=== PATIENT | male | born 1945 | race Native Hawaiian/Other Pacific Islander ===

== ENCOUNTER 2016-04-11 10:15 | Inpatient (IN) | payer OTHER ==
[~2016-04-11 10:15] MED LIST: ALAVERT10 M2 PO; ALLO300T23 PO; ASPIRIN/ENTERIC81 MG PO; CLOPIDOGREL75 MG PO; GLIP10TA55 PO; HYZAAR1 TA1 PO; LIPITOR80 MG PO; MELOXICAM7.5 MG PO; METFTAB PO; METO25TA4 PO; ROBAXIN-750750 MG PO
== END 2016-05-12 08:00 | disposition still patient (30) ==
LOC: PAVC 10:15
PROVIDERS: ADMIT Internal Medicine
DX: Z51.89 Encounter for other specified aftercare (principal)

== ENCOUNTER 2016-05-12 09:00 | Inpatient (IN) | payer OTHER | END 2016-06-12 12:35 | disposition still patient (30) | LOC: PAVC 09:00 | PROVIDERS: ADMIT Internal Medicine | DX: Z51.89 Encounter for other specified aftercare (principal) ==

== ENCOUNTER 2016-06-12 12:55 | Inpatient (IN) | payer OTHER | END 2016-07-10 13:21 | disposition still patient (30) | LOC: PAVC 12:55 | PROVIDERS: ADMIT Internal Medicine | DX: Z51.89 Encounter for other specified aftercare (principal) ==

== ENCOUNTER 2016-07-10 13:38 | Inpatient (IN) | payer OTHER | END 2016-08-10 08:13 | disposition still patient (30) | LOC: PAVC 13:38 | PROVIDERS: ADMIT Internal Medicine | DX: Z51.89 Encounter for other specified aftercare (principal) ==

== ENCOUNTER 2016-07-12 06:22 | Outpatient (CLI) | payer OTHER | END 2016-07-12 19:45 | disposition home or self-care (01) | LOC: LAB 06:22 | DX: E10.9 Type 1 diabetes mellitus without complications (principal) | CPT/HCPCS: 83036 ==

== ENCOUNTER 2016-08-10 08:39 | Inpatient (IN) | payer OTHER | END 2016-09-09 10:57 | disposition still patient (30) | LOC: PAVC 08:39 | PROVIDERS: ADMIT Internal Medicine | DX: Z51.89 Encounter for other specified aftercare (principal) ==

== ENCOUNTER 2016-08-12 16:41 | Outpatient (CLI) | payer OTHER | END 2016-08-12 17:41 | disposition home or self-care (01) | LOC: LAB 16:41 | DX: R31.9 Hematuria, unspecified (principal) | CPT/HCPCS: 81000 ==

== ENCOUNTER 2016-08-14 09:56 | Outpatient (CLI) | payer OTHER | END 2016-08-14 10:56 | disposition home or self-care (01) | LOC: US 09:56 | DX: R31.9 Hematuria, unspecified (principal) ==

== ENCOUNTER 2016-09-02 12:21 | Outpatient (CLI) | payer OTHER | END 2016-09-02 19:28 | disposition home or self-care (01) | LOC: LAB 12:21 | DX: R31.9 Hematuria, unspecified (principal); R50.9 Fever, unspecified | CPT/HCPCS: 81000; 87077; 87086; 87088; 87185; 87186 ==

== ENCOUNTER 2016-09-08 07:49 | Outpatient (CLI) | payer OTHER | END 2016-09-08 19:44 | disposition home or self-care (01) | LOC: LAB 07:49 | DX: Z16.24 Resistance to multiple antibiotics (principal) | CPT/HCPCS: 87081 ==

== ENCOUNTER 2016-09-09 12:01 | Inpatient (IN) | payer OTHER | END 2016-10-10 10:46 | disposition still patient (30) | LOC: PAVC 12:01 | PROVIDERS: ADMIT Internal Medicine | DX: Z51.89 Encounter for other specified aftercare (principal) ==

== ENCOUNTER 2016-09-11 15:04 | Outpatient (CLI) | payer OTHER | END 2016-09-11 19:18 | disposition home or self-care (01) | LOC: CT 15:04 | DX: Z91.81 History of falling (principal) ==

== ENCOUNTER 2016-09-16 05:16 | Outpatient (CLI) | payer OTHER | END 2016-09-16 19:03 | disposition home or self-care (01) | LOC: LAB 05:16 | DX: N39.0 Urinary tract infection, site not specified (principal) | CPT/HCPCS: 81000 ==

== ENCOUNTER 2016-10-05 19:13 | Outpatient (CLI) | payer OTHER | END 2016-10-05 20:30 | disposition home or self-care (01) | LOC: CT 19:13 | DX: H05.232 Hemorrhage of left orbit (principal); G31.89 Other specified degenerative diseases of nervous system ==

== ENCOUNTER 2016-10-10 11:01 | Inpatient (IN) | payer OTHER | END 2016-11-09 16:09 | disposition still patient (30) | LOC: PAVC 11:01 | PROVIDERS: ADMIT Internal Medicine | DX: Z51.89 Encounter for other specified aftercare (principal) ==

== ENCOUNTER 2016-10-15 05:28 | Outpatient (CLI) | payer OTHER ==
[2016-10-15 08:47] LABS: PLATELET COUNT 321 K/uL (142-355)
[2016-10-15 09:10] LABS: POTASSIUM 4.4 mmol/L (3.6-5.2)
== END 2016-10-15 19:07 | disposition home or self-care (01) ==
LOC: LAB 05:28
PROVIDERS: Internal Medicine
DX: D64.89 Other specified anemias (principal); I10 Essential (primary) hypertension; E11.9 Type 2 diabetes mellitus without complications; E03.8 Other specified hypothyroidism
CPT/HCPCS: 80053; 80061; 83036; 84443; 85027

== ENCOUNTER 2016-10-22 05:57 | Outpatient (CLI) | payer OTHER ==
[2016-10-22 06:50] LABS: POTASSIUM 4.2 mmol/L (3.6-5.2)
== END 2016-10-22 07:00 | disposition home or self-care (01) ==
LOC: LAB 05:57
PROVIDERS: Internal Medicine
DX: I10 Essential (primary) hypertension (principal)
CPT/HCPCS: 36415; 80048

== ENCOUNTER 2016-11-09 16:33 | Inpatient (IN) | payer OTHER | END 2016-12-10 12:59 | disposition still patient (30) | LOC: PAVC 16:33 | PROVIDERS: ADMIT Internal Medicine | DX: Z51.89 Encounter for other specified aftercare (principal) ==

== ENCOUNTER 2016-11-18 06:09 | Outpatient (CLI) | payer OTHER | END 2016-11-18 07:10 | disposition home or self-care (01) | LOC: LAB 06:09 | DX: M10.9 Gout, unspecified (principal) | CPT/HCPCS: 36415; 84550 ==

== ENCOUNTER 2016-11-30 14:51 | Outpatient (CLI) | payer OTHER | END 2016-11-30 15:55 | disposition home or self-care (01) | LOC: LAB 14:51 | DX: R30.0 Dysuria (principal) | CPT/HCPCS: 81000; 87077; 87086; 87088; 87185; 87186 ==

== ENCOUNTER 2016-12-10 14:09 | Inpatient (IN) | payer OTHER | END 2017-01-10 09:46 | disposition still patient (30) | LOC: PAVC 14:09 | PROVIDERS: ADMIT Internal Medicine | DX: Z51.89 Encounter for other specified aftercare (principal) ==

== ENCOUNTER 2016-12-20 08:07 | Outpatient (CLI) | payer OTHER | END 2016-12-20 19:59 | disposition home or self-care (01) | LOC: MRI 08:07 | DX: M54.16 Radiculopathy, lumbar region (principal) ==

== ENCOUNTER 2017-01-10 10:30 | Inpatient (IN) | payer OTHER ==
[2017-02-01] MEDS ORDERED: GRALISE600 MG OR (05:04)
[2017-02-01] MEDS ORDERED: LEXAPRO10 MG OR (05:06)
[2017-02-01] MEDS ORDERED: REQUIP1 MG OR (05:07)
[2017-02-01] MEDS ORDERED: CYCL10TA35 PO (05:15)
[2017-02-01] MEDS ORDERED: CETI10TA PO (05:17)
[2017-02-01] MEDS ORDERED: MIRALAX3350 N1 OR (05:19)
[2017-02-01] MEDS ORDERED: OCEAN NAS (05:21)
[2017-02-01] MEDS ORDERED: [UNRECOGNIZED DRUG - OTHER] NAS (05:21)
[2017-02-01] MEDS ORDERED: FLONASE AL50 MCG/ACT (05:23)
[2017-02-01] MEDS ORDERED: TIZA4TAB5 PO (05:26)
[2017-02-01] MEDS ORDERED: HYDR5TAB9 PO (05:29)
== END 2017-02-09 09:37 | disposition still patient (30) ==
LOC: PAVC 10:30
PROVIDERS: ADMIT Internal Medicine
DX: Z51.89 Encounter for other specified aftercare (principal)

== ENCOUNTER 2017-01-16 03:03 | Outpatient (CLI) | payer OTHER | END 2017-01-16 04:05 | disposition home or self-care (01) | LOC: LAB 03:03 | DX: E11.9 Type 2 diabetes mellitus without complications (principal); M10.9 Gout, unspecified | CPT/HCPCS: 83036; 84550 ==

== ENCOUNTER 2017-01-31 18:39 | Inpatient (IN) | payer OTHER ==
[~2017-01-31] VITALS: Ht 162.6 cm; Wt 87.8 kg
[2017-01-31 18:55] VITALS: BP 145/73; TEMP 98
[2017-01-31 19:34] LABS: PLATELET COUNT 254 K/uL (142-355)
[2017-01-31 20:09] LABS: POTASSIUM 4.6 mmol/L (3.6-5.2)
[2017-01-31 22:00] VITALS: BP 147/77; TEMP 99.1
[2017-01-31 23:00] VITALS: BP 162/85
[2017-01-31 23:49] VITALS: BP 147/77; TEMP 99.1; Ht 162.6 cm; Wt 87.8 kg
[2017-02-01] VITALS (17 sets, daily range): BP systolic 122–176; BP diastolic 75–103; TEMP 98.2–98.8
[2017-02-01] MEDS ORDERED: GRALISE600 MG OR (05:04)
[2017-02-01] MEDS ORDERED: LEXAPRO10 MG OR (05:06)
[2017-02-01] MEDS ORDERED: REQUIP1 MG OR (05:07)
[2017-02-01] MEDS ORDERED: CYCL10TA35 PO (05:15)
[2017-02-01] MEDS ORDERED: CETI10TA PO (05:17)
[2017-02-01] MEDS ORDERED: MIRALAX3350 N1 OR (05:19)
[2017-02-01] MEDS ORDERED: [UNRECOGNIZED DRUG - OTHER] NAS (05:21)
[2017-02-01] MEDS ORDERED: OCEAN NAS (05:21)
[2017-02-01] MEDS ORDERED: FLONASE AL50 MCG/ACT (05:23)
[2017-02-01] MEDS ORDERED: TIZA4TAB5 PO (05:26)
[2017-02-01] MEDS ORDERED: HYDR5TAB9 PO (05:29)
[2017-02-01 08:10] LABS: PLATELET COUNT 263 K/uL (142-355)
[2017-02-02 01:00] VITALS: BP 152/81
[2017-02-02 02:00] VITALS: BP 127/87
[2017-02-02 03:00] VITALS: BP 130/81
[2017-02-02 04:00] VITALS: BP 124/81; TEMP 98
[2017-02-02 05:00] VITALS: BP 152/88
[2017-02-02 06:00] VITALS: BP 131/68
== END 2017-02-02 13:15 | DRG 69 ==
LOC: ED 18:39 → ICU 21:08
PROVIDERS: Internal Medicine; ADMIT Family Medicine
DX: G45.8 Other transient cerebral ischemic attacks and related syndromes (principal); R47.89 Other speech disturbances; I25.10 Atherosclerotic heart disease of native coronary artery without angina pectoris; E11.9 Type 2 diabetes mellitus without complications; I10 Essential (primary) hypertension; R26.81 Unsteadiness on feet; F80.1 Expressive language disorder
CPT/HCPCS: 36415; 80053; 80061; 81000; 82962; 85027; 85379; 93005; 96360; 99284; J1650; J2543; J7060

== ENCOUNTER 2017-02-03 14:30 | Outpatient (CLI) | payer OTHER ==
[~2017-02-03 14:30] MED LIST changes: +CETI10TA PO; +CYCL10TA35 PO; +FLONASE AL50 MCG/ACT; +GRALISE600 MG OR; +HYDR5TAB9 PO; +LEXAPRO10 MG OR; +MIRALAX3350 N1 OR; +OCEAN NAS; +REQUIP1 MG OR; +TIZA4TAB5 PO; +[UNRECOGNIZED DRUG - OTHER] NAS
== END 2017-02-03 19:07 | disposition home or self-care (01) ==
LOC: MRI 14:30
DX: R47.89 Other speech disturbances (principal)

== ENCOUNTER 2017-02-04 14:58 | Outpatient (CLI) | payer OTHER | END 2017-02-04 19:14 | disposition home or self-care (01) | LOC: MRI 14:58 | DX: R47.81 Slurred speech (principal); M47.892 Other spondylosis, cervical region | CPT/HCPCS: 93306 ==

== ENCOUNTER 2017-02-09 09:58 | Inpatient (IN) | payer OTHER | END 2017-03-12 14:20 | disposition still patient (30) | LOC: PAVC 09:58 | PROVIDERS: ADMIT Internal Medicine ==

== ENCOUNTER 2017-02-18 08:26 | Outpatient (CLI) | payer OTHER | END 2017-02-18 19:02 | disposition home or self-care (01) | LOC: NM 08:26 | DX: R07.89 Other chest pain (principal); I25.89 Other forms of chronic ischemic heart disease | CPT/HCPCS: A9500; J2785 ==

== ENCOUNTER 2017-02-21 14:09 | Outpatient (CLI) | payer OTHER | END 2017-02-21 15:10 | disposition home or self-care (01) | LOC: LAB 14:09 | DX: R31.9 Hematuria, unspecified (principal) | CPT/HCPCS: 81000 ==

== ENCOUNTER 2017-03-12 15:04 | Inpatient (IN) | payer OTHER | END 2017-04-11 10:30 | disposition still patient (30) | LOC: PAVC 15:04 | PROVIDERS: ADMIT Internal Medicine ==

== ENCOUNTER 2017-03-24 14:55 | Outpatient (CLI) | payer OTHER | END 2017-03-24 15:55 | disposition home or self-care (01) | LOC: LAB 14:55 | DX: R30.0 Dysuria (principal); R30.9 Painful micturition, unspecified | CPT/HCPCS: 81000; 87077; 87086; 87088; 87186 ==

== ENCOUNTER 2017-04-11 10:55 | Inpatient (IN) | payer OTHER | END 2017-05-12 10:57 | disposition still patient (30) | LOC: PAVC 10:55 | PROVIDERS: ADMIT Internal Medicine ==

== ENCOUNTER 2017-04-17 04:25 | Outpatient (CLI) | payer OTHER ==
[2017-04-17 05:10] LABS: PLATELET COUNT 257 K/uL (142-355)
[2017-04-17 05:43] LABS: POTASSIUM 4.3 mmol/L (3.6-5.2)
== END 2017-04-17 19:06 | disposition home or self-care (01) ==
LOC: LAB 04:25
PROVIDERS: Internal Medicine
DX: R73.09 Other abnormal glucose (principal); R79.89 Other specified abnormal findings of blood chemistry; Z13.29 Encounter for screening for other suspected endocrine disorder; Z79.899 Other long term (current) drug therapy
CPT/HCPCS: 80053; 83036; 84443; 85027

== ENCOUNTER 2017-04-19 02:38 | Observation (INO) | payer OTHER ==
[~2017-04-19] VITALS: Ht 162.6 cm; Wt 86.4 kg
[2017-04-19 02:41] VITALS: BP 138/81; TEMP 99.3
[2017-04-19 03:15] LABS: PLATELET COUNT 247 K/uL (142-355)
[2017-04-19 08:00] VITALS: BP 145/90; TEMP 98.7
[2017-04-19 08:29] VITALS: BP 145/90; TEMP 98.7; Ht 162.6 cm; Wt 86.4 kg
[2017-04-19 12:00] VITALS: BP 143/74; TEMP 98.3
== END 2017-04-19 14:06 ==
LOC: ED 02:38 → MED/SURG 05:20
PROVIDERS: Specialist; ADMIT Internal Medicine
DX: K92.0 Hematemesis (principal); I25.10 Atherosclerotic heart disease of native coronary artery without angina pectoris; E11.9 Type 2 diabetes mellitus without complications; I10 Essential (primary) hypertension; R26.81 Unsteadiness on feet; Z91.81 History of falling; R73.09 Other abnormal glucose; Z13.29 Encounter for screening for other suspected endocrine disorder; Z79.899 Other long term (current) drug therapy
CPT/HCPCS: 36415; 80053; 83036; 83605; 83735; 84443; 84484; 85014; 85018; 85027; 86850; 86900; 86901; 96374; 99220; 99284; G0378; J3490

== ENCOUNTER 2017-05-12 11:45 | Inpatient (IN) | payer OTHER | END 2017-06-12 11:13 | disposition still patient (30) | LOC: PAVC 11:45 | PROVIDERS: ADMIT Internal Medicine ==

== ENCOUNTER 2017-05-14 04:16 | Outpatient (CLI) | payer OTHER | END 2017-05-14 21:33 | disposition home or self-care (01) | LOC: LAB 04:16 | DX: M10.9 Gout, unspecified (principal) | CPT/HCPCS: 36415; 84550 ==

== ENCOUNTER 2017-05-26 13:16 | Outpatient (CLI) | payer OTHER | END 2017-05-26 22:02 | disposition home or self-care (01) | LOC: RAD 13:16 | DX: R05 Cough (principal); R09.89 Other specified symptoms and signs involving the circulatory and respiratory systems | CPT/HCPCS: 87804 ==

== ENCOUNTER 2017-06-12 12:29 | Inpatient (IN) | payer OTHER | END 2017-07-10 10:38 | disposition still patient (30) | LOC: PAVC 12:29 | PROVIDERS: ADMIT Internal Medicine ==

== ENCOUNTER 2017-06-23 05:28 | Outpatient (CLI) | payer OTHER ==
[2017-06-23 05:51] LABS: POTASSIUM 3.7 mmol/L (3.6-5.2)
== END 2017-06-23 19:15 | disposition home or self-care (01) ==
LOC: LAB 05:28
PROVIDERS: Internal Medicine
DX: M62.81 Muscle weakness (generalized) (principal); E10.9 Type 1 diabetes mellitus without complications
CPT/HCPCS: 36415; 80048

== ENCOUNTER 2017-07-10 10:57 | Inpatient (IN) | payer OTHER | END 2017-08-10 08:00 | disposition still patient (30) | LOC: PAVC 10:57 | PROVIDERS: ADMIT Internal Medicine ==

== ENCOUNTER 2017-07-18 05:26 | Outpatient (CLI) | payer OTHER | END 2017-07-18 21:16 | disposition home or self-care (01) | LOC: LAB 05:26 | DX: E03.8 Other specified hypothyroidism (principal); E11.9 Type 2 diabetes mellitus without complications | CPT/HCPCS: 83036 ==

== ENCOUNTER 2017-08-10 09:00 | Inpatient (IN) | payer OTHER | END 2017-09-09 10:28 | disposition still patient (30) | LOC: PAVC 09:00 | PROVIDERS: ADMIT Internal Medicine ==

== ENCOUNTER 2017-08-25 14:46 | Outpatient (CLI) | payer OTHER | END 2017-08-25 20:08 | disposition home or self-care (01) | LOC: CT 14:46 | DX: R31.9 Hematuria, unspecified (principal); Z87.442 Personal history of urinary calculi ==

== ENCOUNTER 2017-09-09 10:52 | Inpatient (IN) | payer OTHER | END 2017-10-10 10:24 | disposition still patient (30) | LOC: PAVC 10:52 | PROVIDERS: ADMIT Internal Medicine ==

== ENCOUNTER 2017-10-10 10:48 | Inpatient (IN) | payer OTHER | END 2017-11-09 15:05 | disposition still patient (30) | LOC: PAVC 10:48 | PROVIDERS: ADMIT Internal Medicine ==

== ENCOUNTER 2017-10-17 03:52 | Outpatient (CLI) | payer OTHER ==
[2017-10-17 05:26] LABS: PLATELET COUNT 236 K/uL (142-355)
[2017-10-17 05:49] LABS: POTASSIUM 3.9 mmol/L (3.6-5.2)
== END 2017-10-17 19:08 | disposition home or self-care (01) ==
LOC: LAB 03:52
PROVIDERS: Internal Medicine
DX: I10 Essential (primary) hypertension (principal); K21.9 Gastro-esophageal reflux disease without esophagitis; R73.9 Hyperglycemia, unspecified; M62.81 Muscle weakness (generalized)
CPT/HCPCS: 80053; 80061; 83036; 84443; 85027

== ENCOUNTER 2017-10-28 11:16 | Outpatient (CLI) | payer OTHER | END 2017-10-28 22:18 | disposition home or self-care (01) | LOC: RAD 11:16 | DX: R05 Cough (principal) ==

== ENCOUNTER 2017-11-09 15:31 | Inpatient (IN) | payer OTHER | END 2017-12-10 08:00 | disposition still patient (30) | LOC: PAVC 15:31 | PROVIDERS: ADMIT Internal Medicine ==

== ENCOUNTER 2017-11-10 05:08 | Outpatient (CLI) | payer OTHER | END 2017-11-10 19:39 | disposition home or self-care (01) | LOC: LAB 05:08 | DX: M10.9 Gout, unspecified (principal) | CPT/HCPCS: 36415; 84550 ==

== ENCOUNTER 2017-12-10 09:00 | Inpatient (IN) | payer OTHER | END 2018-01-10 11:11 | disposition still patient (30) | LOC: PAVC 09:00 | PROVIDERS: ADMIT Internal Medicine ==

== ENCOUNTER 2018-01-10 11:35 | Inpatient (IN) | payer OTHER | END 2018-02-09 14:36 | disposition still patient (30) | LOC: PAVC 11:35 | PROVIDERS: ADMIT Internal Medicine ==

== ENCOUNTER 2018-01-13 04:26 | Outpatient (CLI) | payer OTHER | END 2018-01-13 23:26 | disposition home or self-care (01) | LOC: LAB 04:26 | DX: E03.9 Hypothyroidism, unspecified (principal); R73.9 Hyperglycemia, unspecified | CPT/HCPCS: 36415; 83036 ==

== ENCOUNTER 2018-02-09 15:35 | Inpatient (IN) | payer OTHER | END 2018-03-12 10:33 | disposition still patient (30) | LOC: PAVC 15:35 | PROVIDERS: ADMIT Internal Medicine ==

== ENCOUNTER 2018-03-12 11:29 | Inpatient (IN) | payer OTHER | END 2018-04-11 07:21 | disposition still patient (30) | LOC: PAVC 11:29 | PROVIDERS: ADMIT Internal Medicine ==

== ENCOUNTER 2018-03-19 05:39 | Outpatient (CLI) | payer OTHER | END 2018-03-19 20:08 | disposition home or self-care (01) | LOC: LAB 05:39 | DX: E55.9 Vitamin D deficiency, unspecified (principal) | CPT/HCPCS: 36415; 82306 ==

== ENCOUNTER 2018-04-08 23:17 | Outpatient (CLI) | payer OTHER | END 2018-04-09 00:17 | disposition home or self-care (01) | LOC: LAB 23:17 | DX: R82.90 Unspecified abnormal findings in urine (principal) | CPT/HCPCS: 81000; 87088 ==

== ENCOUNTER 2018-04-11 07:47 | Inpatient (IN) | payer OTHER | END 2018-05-12 09:36 | disposition still patient (30) | LOC: PAVC 07:47 | PROVIDERS: ADMIT Internal Medicine ==

== ENCOUNTER 2018-04-15 05:25 | Outpatient (CLI) | payer OTHER ==
[2018-04-15 06:26] LABS: PLATELET COUNT 384 K/uL (142-355)
[2018-04-15 06:47] LABS: POTASSIUM 4.3 mmol/L (3.6-5.2)
== END 2018-04-15 21:11 | disposition home or self-care (01) ==
LOC: LAB 05:25
PROVIDERS: Internal Medicine
DX: I10 Essential (primary) hypertension (principal); R73.09 Other abnormal glucose; M62.81 Muscle weakness (generalized)
CPT/HCPCS: 80053; 83036; 84443; 85027

== ENCOUNTER 2018-05-12 09:53 | Inpatient (IN) | payer OTHER | END 2018-06-12 09:37 | disposition still patient (30) | LOC: PAVC 09:53 | PROVIDERS: ADMIT Internal Medicine | CPT/HCPCS: 87088 ==

== ENCOUNTER 2018-05-16 19:35 | Outpatient (CLI) | payer OTHER | END 2018-05-16 23:01 | disposition home or self-care (01) | LOC: LAB 19:35 | DX: R30.0 Dysuria (principal) | CPT/HCPCS: 81000; 87077; 87086; 87088; 87185; 87186 ==

== ENCOUNTER 2018-05-18 05:07 | Outpatient (CLI) | payer OTHER | END 2018-05-18 20:15 | disposition home or self-care (01) | LOC: LAB 05:07 | DX: M10.9 Gout, unspecified (principal) | CPT/HCPCS: 84550 ==

== ENCOUNTER 2018-06-12 10:20 | Inpatient (IN) | payer OTHER | END 2018-07-10 13:47 | disposition still patient (30) | LOC: PAVC 10:20 | PROVIDERS: ADMIT Internal Medicine ==

== ENCOUNTER 2018-06-15 08:33 | Outpatient (CLI) | payer OTHER | END 2018-06-15 20:47 | disposition home or self-care (01) | LOC: LAB 08:33 | DX: E83.51 Hypocalcemia (principal) | CPT/HCPCS: 36415; 82306; 82310 ==

== ENCOUNTER 2018-07-10 14:13 | Inpatient (IN) | payer OTHER | END 2018-08-10 12:31 | disposition still patient (30) | LOC: PAVC 14:13 | PROVIDERS: ADMIT Internal Medicine ==

== ENCOUNTER 2018-07-16 11:31 | Outpatient (CLI) | payer OTHER | END 2018-07-16 19:56 | disposition home or self-care (01) | LOC: LAB 11:31 | DX: E11.65 Type 2 diabetes mellitus with hyperglycemia (principal) | CPT/HCPCS: 83036 ==

== ENCOUNTER 2018-08-10 12:50 | Inpatient (IN) | payer OTHER | END 2018-09-09 13:43 | disposition still patient (30) | LOC: PAVC 12:50 | PROVIDERS: ADMIT Internal Medicine ==

== ENCOUNTER 2018-09-09 14:12 | Inpatient (IN) | payer OTHER | END 2018-10-10 09:40 | disposition still patient (30) | LOC: PAVC 14:12 | PROVIDERS: ADMIT Internal Medicine | DX: Z51.89 Encounter for other specified aftercare (principal) ==

== ENCOUNTER 2018-10-10 10:05 | Inpatient (IN) | payer OTHER | END 2018-11-09 12:19 | disposition still patient (30) | LOC: PAVC 10:05 | PROVIDERS: ADMIT Internal Medicine ==

== ENCOUNTER 2018-10-20 03:31 | Outpatient (CLI) | payer OTHER ==
[2018-10-20 03:56] LABS: PLATELET COUNT 237 K/uL (142-355)
[2018-10-20 04:35] LABS: POTASSIUM 4.1 mmol/L (3.6-5.2)
== END 2018-10-20 22:59 | disposition home or self-care (01) ==
LOC: LAB 03:31
PROVIDERS: Internal Medicine
DX: R73.09 Other abnormal glucose (principal); R68.89 Other general symptoms and signs; R94.6 Abnormal results of thyroid function studies; Z13.220 Encounter for screening for lipoid disorders; Z12.5 Encounter for screening for malignant neoplasm of prostate; I10 Essential (primary) hypertension
CPT/HCPCS: 36415; 80053; 80061; 83036; 84153; 84443; 85027

== ENCOUNTER 2018-11-09 12:31 | Inpatient (IN) | payer OTHER | END 2018-12-10 11:54 | disposition still patient (30) | LOC: PAVC 12:31 | PROVIDERS: ADMIT Internal Medicine ==

== ENCOUNTER 2018-11-13 04:51 | Outpatient (CLI) | payer OTHER | END 2018-11-13 20:39 | disposition home or self-care (01) | LOC: LAB 04:51 | DX: M10.9 Gout, unspecified (principal); E11.9 Type 2 diabetes mellitus without complications | CPT/HCPCS: 84550 ==

== ENCOUNTER 2018-12-10 14:15 | Inpatient (IN) | payer OTHER | END 2019-01-10 17:17 | disposition still patient (30) | LOC: PAVC 14:15 | PROVIDERS: ADMIT Internal Medicine ==

== ENCOUNTER 2019-01-10 17:41 | Inpatient (IN) | payer OTHER | END 2019-02-09 12:57 | disposition still patient (30) | LOC: PAVC 17:41 | PROVIDERS: ADMIT Internal Medicine ==

== ENCOUNTER 2019-01-12 09:30 | Outpatient (CLI) | payer OTHER | END 2019-01-12 22:51 | disposition home or self-care (01) | LOC: LAB 09:30 | DX: I10 Essential (primary) hypertension (principal); R94.6 Abnormal results of thyroid function studies; E11.9 Type 2 diabetes mellitus without complications | CPT/HCPCS: 83036; 84443 ==

== ENCOUNTER 2019-02-09 13:30 | Inpatient (IN) | payer OTHER | END 2019-03-12 14:10 | disposition still patient (30) | LOC: PAVC 13:30 | PROVIDERS: ADMIT Internal Medicine ==

== ENCOUNTER 2019-03-12 14:36 | Inpatient (IN) | payer OTHER | END 2019-04-11 08:00 | disposition still patient (30) | LOC: PAVC 14:36 | PROVIDERS: ADMIT Internal Medicine ==

== ENCOUNTER 2019-04-11 11:00 | Inpatient (IN) | payer OTHER | END 2019-05-12 09:30 | disposition still patient (30) | LOC: PAVC 11:00 | PROVIDERS: ADMIT Internal Medicine ==

== ENCOUNTER 2019-04-12 07:44 | Outpatient (CLI) | payer OTHER ==
[2019-04-12 08:18] LABS: PLATELET COUNT 252 K/uL (142-355)
[2019-04-12 08:56] LABS: POTASSIUM 4.1 mmol/L (3.6-5.2)
== END 2019-04-12 20:54 | disposition home or self-care (01) ==
LOC: LAB 07:44
PROVIDERS: Internal Medicine
DX: E11.9 Type 2 diabetes mellitus without complications (principal); E03.8 Other specified hypothyroidism; I10 Essential (primary) hypertension
CPT/HCPCS: 80053; 83036; 84443; 85027

== ENCOUNTER 2019-05-12 09:56 | Inpatient (IN) | payer OTHER | END 2019-06-12 10:45 | disposition still patient (30) | LOC: PAVC 09:56 | PROVIDERS: ADMIT Internal Medicine ==

== ENCOUNTER 2019-05-14 05:31 | Outpatient (CLI) | payer OTHER | END 2019-05-14 19:24 | disposition home or self-care (01) | LOC: LAB 05:31 | DX: M10.9 Gout, unspecified (principal) | CPT/HCPCS: 84550 ==

== ENCOUNTER 2019-05-27 05:13 | Outpatient (CLI) | payer OTHER | END 2019-05-27 20:17 | disposition home or self-care (01) | LOC: LAB 05:13 | PROVIDERS: Internal Medicine | DX: I25.9 Chronic ischemic heart disease, unspecified (principal) | CPT/HCPCS: 80048; 83880 ==

== ENCOUNTER 2019-06-12 11:11 | Inpatient (IN) | payer OTHER | END 2019-07-11 14:11 | disposition still patient (30) | LOC: PAVC 11:11 | PROVIDERS: ADMIT Internal Medicine ==

== ENCOUNTER 2019-07-11 14:37 | Inpatient (IN) | payer OTHER | END 2019-08-11 11:43 | disposition still patient (30) | LOC: PAVC 14:37 | PROVIDERS: ADMIT Internal Medicine ==

== ENCOUNTER 2019-07-12 05:51 | Outpatient (CLI) | payer OTHER | END 2019-07-12 19:06 | disposition home or self-care (01) | LOC: LAB 05:51 | DX: E11.9 Type 2 diabetes mellitus without complications (principal) | CPT/HCPCS: 83036 ==

== ENCOUNTER 2019-08-11 12:09 | Inpatient (IN) | payer OTHER | END 2019-09-10 11:22 | disposition still patient (30) | LOC: PAVC 12:09 | PROVIDERS: ADMIT Internal Medicine ==

== ENCOUNTER 2019-09-02 09:08 | Emergency (ER) | payer OTHER ==
[~2019-09-02] VITALS: Ht 175.3 cm; Wt 72.6 kg
[2019-09-02 09:08] VITALS: TEMP 97.2
[2019-09-02 09:52] LABS: PLATELET COUNT 356 K/uL (142-355)
[2019-09-02 09:54] LABS: POTASSIUM 4.7 mmol/L (3.6-5.2); SODIUM 129 mmol/L (136-145)
[2019-09-02 10:10] LABS: PARTIAL THROMBOPLASTIN TIME 36.3 SECONDS (24.5-33.6)
[2019-09-02 11:50] VITALS: BP 102/56
== END 2019-09-02 11:50 ==
LOC: ED 09:18
PROVIDERS: Hospitalist
DX: E11.649 Type 2 diabetes mellitus with hypoglycemia without coma (principal); Z79.84 Long term (current) use of oral hypoglycemic drugs; Z51.81 Encounter for therapeutic drug level monitoring; E86.0 Dehydration; U07.1 COVID-19; I44.4 Left anterior fascicular block; R06.89 Other abnormalities of breathing
CPT/HCPCS: 36415; 80053; 82550; 82962; 83880; 84484; 85027; 85610; 85730; 93005; 96360; 96361; 96375; 96376; 99284; J7060

== ENCOUNTER 2019-09-10 11:54 | Inpatient (IN) | payer OTHER | END 2019-10-11 11:21 | disposition still patient (30) | LOC: PAVC 11:54 | PROVIDERS: ADMIT Internal Medicine | CPT/HCPCS: 87635; U0002 ==

== ENCOUNTER 2019-10-11 11:47 | Inpatient (IN) | payer OTHER | END 2019-11-10 11:55 | disposition still patient (30) | LOC: PAVC 11:47 | PROVIDERS: ADMIT Internal Medicine | CPT/HCPCS: 87635; U0002 ==

== ENCOUNTER 2019-10-12 04:06 | Outpatient (CLI) | payer OTHER ==
[2019-10-12 06:20] LABS: PLATELET COUNT 380 K/uL (142-355)
[2019-10-12 06:21] LABS: POTASSIUM 4.1 mmol/L (3.6-5.2)
== END 2019-10-12 19:05 | disposition home or self-care (01) ==
LOC: LAB 04:06
PROVIDERS: Internal Medicine
DX: E11.9 Type 2 diabetes mellitus without complications (principal); I25.10 Atherosclerotic heart disease of native coronary artery without angina pectoris
CPT/HCPCS: 80053; 80061; 83036; 85027

== ENCOUNTER 2019-10-22 03:09 | Outpatient (CLI) | payer OTHER | END 2019-10-22 18:54 | disposition home or self-care (01) | LOC: LAB 03:09 | DX: E03.8 Other specified hypothyroidism (principal) | CPT/HCPCS: 84443 ==

== ENCOUNTER 2019-11-10 12:09 | Inpatient (IN) | payer OTHER | END 2019-12-11 10:13 | disposition still patient (30) | LOC: PAVC 12:09 | PROVIDERS: ADMIT Internal Medicine ==

== ENCOUNTER 2019-12-11 10:28 | Inpatient (IN) | payer OTHER | END 2020-01-11 14:01 | disposition still patient (30) | LOC: PAVC 10:28 | PROVIDERS: ADMIT Internal Medicine ==

== ENCOUNTER 2020-01-11 14:39 | Inpatient (IN) | payer OTHER | END 2020-02-10 14:08 | disposition still patient (30) | LOC: PAVC 14:39 | PROVIDERS: ADMIT Internal Medicine ==

== ENCOUNTER 2020-01-12 07:01 | Outpatient (CLI) | payer OTHER | END 2020-01-12 23:53 | disposition home or self-care (01) | LOC: LAB 07:01 | DX: E11.9 Type 2 diabetes mellitus without complications (principal) | CPT/HCPCS: 83036; 84153 ==

== ENCOUNTER 2020-02-10 15:02 | Inpatient (IN) | payer OTHER | END 2020-03-12 08:00 | disposition still patient (30) | LOC: PAVC 15:02 | PROVIDERS: ADMIT Internal Medicine ==

== ENCOUNTER 2020-03-11 08:00 | Outpatient (CLI) | payer OTHER | END 2020-03-11 17:00 | LOC: CCM 08:00 | PROVIDERS: ATTEND Nurse Practitioner Family | DX: I10 Essential (primary) hypertension (principal); E11.9 Type 2 diabetes mellitus without complications | CPT/HCPCS: 99453; 99454 ==

== ENCOUNTER 2020-03-12 09:00 | Inpatient (IN) | payer OTHER | END 2020-04-11 12:24 | disposition still patient (30) | LOC: PAVC 09:00 | PROVIDERS: ADMIT Internal Medicine; ATTEND Internal Medicine ==

== ENCOUNTER 2020-04-11 07:17 | Outpatient (CLI) | payer OTHER ==
[2020-04-11 08:14] LABS: PLATELET COUNT 262 K/uL (142-355)
[2020-04-11 08:29] LABS: POTASSIUM 4.2 mmol/L (3.6-5.2)
== END 2020-04-11 22:21 | disposition home or self-care (01) ==
LOC: LAB 07:17
PROVIDERS: ATTEND Internal Medicine
DX: I25.9 Chronic ischemic heart disease, unspecified (principal); E11.9 Type 2 diabetes mellitus without complications; I25.10 Atherosclerotic heart disease of native coronary artery without angina pectoris
CPT/HCPCS: 80053; 83036; 84443; 85007; 85027

== ENCOUNTER 2020-04-11 12:40 | Inpatient (IN) | payer OTHER | END 2020-05-12 09:47 | disposition still patient (30) | LOC: PAVC 12:40 | PROVIDERS: ADMIT Internal Medicine; ATTEND Internal Medicine ==

== ENCOUNTER 2020-05-12 10:00 | Inpatient (IN) | payer OTHER | END 2020-06-12 15:30 | disposition still patient (30) | LOC: PAVC 10:00 | PROVIDERS: ADMIT Internal Medicine; ATTEND Internal Medicine ==

== ENCOUNTER 2020-06-12 15:46 | Inpatient (IN) | payer OTHER | END 2020-07-10 11:15 | disposition still patient (30) | LOC: PAVC 15:46 | PROVIDERS: ADMIT Internal Medicine; ATTEND Internal Medicine ==

== ENCOUNTER 2020-07-10 11:38 | Inpatient (IN) | payer OTHER | END 2020-08-10 11:45 | disposition still patient (30) | LOC: PAVC 11:38 | PROVIDERS: ADMIT Internal Medicine; ATTEND Internal Medicine ==

== ENCOUNTER 2020-07-26 11:12 | Outpatient (CLI) | payer OTHER | END 2020-07-26 22:13 | disposition home or self-care (01) | LOC: INF 11:12 | PROVIDERS: ATTEND Internal Medicine | DX: Z23 Encounter for immunization (principal) | CPT/HCPCS: 96372 ==

== ENCOUNTER 2020-08-10 12:12 | Inpatient (IN) | payer OTHER | END 2020-09-09 11:25 | disposition still patient (30) | LOC: PAVC 12:12 | PROVIDERS: ADMIT Internal Medicine; ATTEND Internal Medicine ==

== ENCOUNTER 2020-08-24 14:44 | Outpatient (CLI) | payer OTHER | END 2020-08-24 22:02 | disposition home or self-care (01) | LOC: INF 14:44 | PROVIDERS: ATTEND Internal Medicine | DX: Z23 Encounter for immunization (principal) | CPT/HCPCS: 96372 ==

== ENCOUNTER 2020-09-05 16:58 | Emergency (ER) | payer OTHER ==
[~2020-09-05] VITALS: Ht 175.3 cm; Wt 72.6 kg
[2020-09-05 16:58] VITALS: TEMP 97.2
[2020-09-05 17:33] LABS: PLATELET COUNT 306 K/uL (142-355)
[2020-09-05 17:42] LABS: PARTIAL THROMBOPLASTIN TIME 29.2 SECONDS (24.5-33.6)
[2020-09-05 18:46] VITALS: BP 145/70
== END 2020-09-05 19:00 ==
LOC: ED 16:58
PROVIDERS: Family Medicine
DX: R53.83 Other fatigue (principal); Z79.899 Other long term (current) drug therapy; Z51.81 Encounter for therapeutic drug level monitoring
CPT/HCPCS: 80053; 85027; 85610; 85730; 93005; 99283

== ENCOUNTER 2020-09-09 11:39 | Inpatient (IN) | payer OTHER | END 2020-10-10 15:44 | disposition still patient (30) | LOC: PAVC 11:39 | PROVIDERS: ADMIT Internal Medicine; ATTEND Internal Medicine ==

== ENCOUNTER 2020-09-13 06:16 | Outpatient (CLI) | payer OTHER | END 2020-09-13 19:14 | disposition home or self-care (01) | LOC: LAB 06:16 | PROVIDERS: ATTEND Internal Medicine | DX: N39.0 Urinary tract infection, site not specified (principal) | CPT/HCPCS: 81000; 87077; 87086; 87088; 87186 ==

== ENCOUNTER 2020-10-10 07:50 | Outpatient (CLI) | payer OTHER ==
[2020-10-10 09:55] LABS: PLATELET COUNT 192 K/uL (142-355)
[2020-10-10 10:23] LABS: POTASSIUM 4.4 mmol/L (3.6-5.2)
== END 2020-10-10 19:09 | disposition home or self-care (01) ==
LOC: LAB 07:50
PROVIDERS: ATTEND Internal Medicine
DX: I25.10 Atherosclerotic heart disease of native coronary artery without angina pectoris (principal); E11.9 Type 2 diabetes mellitus without complications
CPT/HCPCS: 80053; 80061; 83036; 84443; 85007; 85027

== ENCOUNTER 2020-10-10 16:47 | Inpatient (IN) | payer OTHER | END 2020-11-09 09:00 | disposition still patient (30) | LOC: PAVC 16:47 | PROVIDERS: ADMIT Internal Medicine; ATTEND Internal Medicine ==

== ENCOUNTER 2020-11-09 09:00 | Inpatient (IN) | payer OTHER | END 2020-12-10 08:00 | disposition still patient (30) | LOC: PAVC 09:00 | PROVIDERS: ADMIT Internal Medicine; ATTEND Internal Medicine ==

== ENCOUNTER 2020-11-29 00:33 | Outpatient (CLI) | payer OTHER | END 2020-11-29 19:18 | disposition home or self-care (01) | LOC: LAB 00:33 | PROVIDERS: ATTEND Internal Medicine | DX: R30.0 Dysuria (principal) | CPT/HCPCS: 81000 ==

== ENCOUNTER 2020-12-10 09:00 | Inpatient (IN) | payer OTHER | END 2021-01-10 13:50 | disposition still patient (30) | LOC: PAVC 09:00 | PROVIDERS: ADMIT Internal Medicine; ATTEND Internal Medicine ==

== ENCOUNTER 2021-01-10 04:27 | Outpatient (CLI) | payer OTHER | END 2021-01-10 23:00 | disposition home or self-care (01) | LOC: LAB 04:27 | PROVIDERS: ATTEND Internal Medicine | DX: E11.9 Type 2 diabetes mellitus without complications (principal); N40.0 Benign prostatic hyperplasia without lower urinary tract symptoms | CPT/HCPCS: 83036; 84153 ==

== ENCOUNTER 2021-01-10 14:02 | Inpatient (IN) | payer OTHER | END 2021-02-09 09:38 | disposition still patient (30) | LOC: PAVC 14:02 | PROVIDERS: ADMIT Internal Medicine; ATTEND Internal Medicine ==

== ENCOUNTER 2021-04-11 08:18 | Outpatient (CLI) | payer OTHER ==
[2021-04-11 08:46] LABS: PLATELET COUNT 172 K/uL (142-355)
[2021-04-11 09:09] LABS: POTASSIUM 4.5 mmol/L (3.6-5.2)
== END 2021-04-11 20:12 | disposition home or self-care (01) ==
LOC: LAB 08:18
PROVIDERS: ATTEND Internal Medicine
DX: E11.9 Type 2 diabetes mellitus without complications (principal); E03.8 Other specified hypothyroidism; I25.10 Atherosclerotic heart disease of native coronary artery without angina pectoris; I10 Essential (primary) hypertension
CPT/HCPCS: 80053; 83036; 84443; 85027

== ENCOUNTER 2021-04-11 12:34 | Inpatient (IN) | payer OTHER | END 2021-05-12 09:08 | disposition still patient (30) | LOC: PAVC 12:34 | PROVIDERS: ADMIT Internal Medicine; ATTEND Internal Medicine ==

== ENCOUNTER 2021-05-12 09:26 | Inpatient (IN) | payer OTHER | END 2021-06-12 08:57 | disposition still patient (30) | LOC: PAVC 09:26 | PROVIDERS: ADMIT Internal Medicine; ATTEND Internal Medicine ==

== ENCOUNTER 2021-06-12 13:02 | Inpatient (IN) | payer OTHER | END 2021-07-10 09:08 | disposition still patient (30) | LOC: PAVC 13:02 | PROVIDERS: ADMIT Internal Medicine; ATTEND Internal Medicine ==

== ENCOUNTER 2021-07-10 07:12 | Outpatient (CLI) | payer OTHER | END 2021-07-10 19:00 | disposition home or self-care (01) | LOC: LAB 07:12 | PROVIDERS: ATTEND Internal Medicine | DX: E11.9 Type 2 diabetes mellitus without complications (principal) | CPT/HCPCS: 83036 ==

== ENCOUNTER 2021-07-10 14:02 | Inpatient (IN) | payer OTHER | END 2021-08-10 14:12 | disposition still patient (30) | LOC: PAVC 14:02 | PROVIDERS: ADMIT Internal Medicine; ATTEND Internal Medicine ==

== ENCOUNTER 2021-07-12 07:39 | Outpatient (CLI) | payer OTHER ==
[~2021-07-12] VITALS: Ht 180.3 cm; Wt 93.4 kg
== END 2021-07-12 19:06 | disposition home or self-care (01) ==
LOC: NM 07:39
PROVIDERS: ATTEND Internal Medicine
DX: Z01.818 Encounter for other preprocedural examination (principal); I25.10 Atherosclerotic heart disease of native coronary artery without angina pectoris; I10 Essential (primary) hypertension
CPT/HCPCS: A9500; J2785

== ENCOUNTER 2021-07-19 06:39 | Outpatient (CLI) | payer OTHER ==
[2021-07-19 07:38] LABS: POTASSIUM 5.1 mmol/L (3.6-5.2)
== END 2021-07-19 21:02 | disposition home or self-care (01) ==
LOC: LAB 06:39
PROVIDERS: ATTEND Internal Medicine
DX: I25.89 Other forms of chronic ischemic heart disease (principal); I25.10 Atherosclerotic heart disease of native coronary artery without angina pectoris; G45.9 Transient cerebral ischemic attack, unspecified; I25.2 Old myocardial infarction; I10 Essential (primary) hypertension
CPT/HCPCS: 80048; 83735

== ENCOUNTER 2021-07-26 07:15 | Outpatient (CLI) | payer OTHER | END 2021-07-26 20:37 | disposition home or self-care (01) | LOC: LAB 07:15 | PROVIDERS: ATTEND Internal Medicine | DX: E83.42 Hypomagnesemia (principal) | CPT/HCPCS: 83735 ==

== ENCOUNTER 2021-08-10 15:22 | Inpatient (IN) | payer OTHER | END 2021-09-09 10:38 | disposition still patient (30) | LOC: PAVC 15:22 | PROVIDERS: ADMIT Internal Medicine; ATTEND Internal Medicine ==

== ENCOUNTER 2021-08-21 06:57 | Outpatient (CLI) | payer OTHER | END 2021-08-21 19:37 | disposition home or self-care (01) | LOC: LAB 06:57 | PROVIDERS: ATTEND Internal Medicine | DX: I25.89 Other forms of chronic ischemic heart disease (principal); I10 Essential (primary) hypertension | CPT/HCPCS: 83735 ==

== ENCOUNTER 2021-09-09 02:24 | Inpatient (IN) | payer OTHER | END 2021-10-10 09:58 | disposition still patient (30) | LOC: PAVC 02:24 | PROVIDERS: ADMIT Internal Medicine; ATTEND Internal Medicine ==

== ENCOUNTER 2021-09-20 09:59 | Outpatient (CLI) | payer OTHER | END 2021-09-20 19:02 | disposition home or self-care (01) | LOC: RAD 09:59 | PROVIDERS: ATTEND Internal Medicine | DX: R19.30 Abdominal rigidity, unspecified site (principal); R14.0 Abdominal distension (gaseous) ==

== ENCOUNTER 2021-10-10 07:43 | Outpatient (CLI) | payer OTHER ==
[2021-10-10 08:17] LABS: PLATELET COUNT 244 K/uL (142-355)
[2021-10-10 08:29] LABS: POTASSIUM 2.9 mmol/L (3.6-5.2)
== END 2021-10-10 19:07 | disposition home or self-care (01) ==
LOC: LAB 07:43
PROVIDERS: ATTEND Internal Medicine
DX: E11.9 Type 2 diabetes mellitus without complications (principal); I25.89 Other forms of chronic ischemic heart disease; M10.9 Gout, unspecified; I10 Essential (primary) hypertension
CPT/HCPCS: 80053; 80061; 83036; 84443; 84550; 85027

== ENCOUNTER 2021-10-10 16:00 | Inpatient (IN) | payer OTHER | END 2021-11-09 09:15 | disposition still patient (30) | LOC: PAVC 16:00 | PROVIDERS: ADMIT Internal Medicine; ATTEND Internal Medicine ==

== ENCOUNTER 2021-10-11 16:20 | Outpatient (CLI) | payer OTHER | END 2021-10-11 19:01 | disposition home or self-care (01) | LOC: LAB 16:20 | PROVIDERS: ATTEND Internal Medicine | DX: R79.89 Other specified abnormal findings of blood chemistry (principal) | CPT/HCPCS: 83735 ==

== ENCOUNTER 2021-11-09 12:53 | Inpatient (IN) | payer OTHER ==
[2021-11-23 15:26] LABS: PLATELET COUNT 301 K/uL (142-355)
[2021-11-23 15:43] LABS: POTASSIUM 3.5 mmol/L (3.6-5.2)
[2021-11-27 20:19] LABS: POTASSIUM 2.9 mmol/L (3.6-5.2)
[2021-11-29 14:49] LABS: POTASSIUM 4.1 mmol/L (3.6-5.2)
[2021-12-05 07:14] LABS: POTASSIUM 3.5 mmol/L (3.6-5.2)
[2021-12-06 08:07] LABS: POTASSIUM 3.3 mmol/L (3.6-5.2)
== END 2021-12-10 09:09 | disposition still patient (30) ==
LOC: PAVC 12:53
PROVIDERS: ADMIT Internal Medicine; ATTEND Internal Medicine
DX: J15.212 Pneumonia due to Methicillin resistant Staphylococcus aureus (principal); N39.0 Urinary tract infection, site not specified; B96.20 Unspecified Escherichia coli [E. coli] as the cause of diseases classified elsewhere; S22.42XD Multiple fractures of ribs, left side, subsequent encounter for fracture with routine healing; M62.81 Muscle weakness (generalized); R13.11 Dysphagia, oral phase; Z74.09 Other reduced mobility; Z74.1 Need for assistance with personal care
CPT/HCPCS: 36415; 80048; 80053; 83735; 83880; 85027

== ENCOUNTER 2021-11-10 06:46 | Emergency (ER) | payer OTHER ==
[~2021-11-10] VITALS: Ht 180.3 cm; Wt 93.4 kg
[2021-11-10 07:37] LABS: PLATELET COUNT 128 K/uL (142-355)
[2021-11-10 07:49] LABS: POTASSIUM 3.1 mmol/L (3.6-5.2)
[2021-11-10 08:03] LABS: PARTIAL THROMBOPLASTIN TIME 47.4 SECONDS (24.5-33.6)
[2021-11-10 09:07] VITALS: BP 107/49
== END 2021-11-10 10:15 | disposition short-term general hospital (02) ==
LOC: ED 06:46
PROVIDERS: Hospitalist
PROC: 0T9B70Z Drainage of Bladder with Drainage Device, Via Natural or Artificial Opening (ICD-10-PCS; principal; 2021-11-10)
PROC: 0D9670Z Drainage of Stomach with Drainage Device, Via Natural or Artificial Opening (ICD-10-PCS; 2021-11-10)
PROC: 5A12012 Performance of Cardiac Output, Single, Manual (ICD-10-PCS; 2021-11-10)
PROC: 5A1935Z Respiratory Ventilation, Less than 24 Consecutive Hours (ICD-10-PCS; 2021-11-10)
PROC: 0BH17EZ Insertion of Endotracheal Airway into Trachea, Via Natural or Artificial Opening (ICD-10-PCS; 2021-11-10)
DX: I46.9 Cardiac arrest, cause unspecified (principal); I21.3 ST elevation (STEMI) myocardial infarction of unspecified site; I24.9 Acute ischemic heart disease, unspecified; I10 Essential (primary) hypertension; Z11.52 Encounter for screening for COVID-19
CPT/HCPCS: 36415; 36600; 43754; 51702; 80053; 82550; 82805; 83880; 84484; 85007; 85027; 85610; 85730; 86850; 86900; 86901; 87635; 92950; 93005; 94002; 94003; 96360; 96365; 96366; 96375; 96376; 99285; J0171; J0282; J0461; J0610; J1815; J2250; J3490; J7060; P9047; U0003

== ENCOUNTER 2022-01-10 07:26 | Outpatient (CLI) | payer OTHER | END 2022-01-10 19:18 | disposition home or self-care (01) | LOC: LAB 07:26 | PROVIDERS: ATTEND Family Medicine | DX: R33.9 Retention of urine, unspecified (principal); E11.9 Type 2 diabetes mellitus without complications | CPT/HCPCS: 83036; 84153 ==

== ENCOUNTER 2022-01-10 14:46 | Inpatient (IN) | payer OTHER | END 2022-02-09 10:37 | disposition still patient (30) | LOC: PAVC 14:46 | PROVIDERS: ADMIT Family Medicine; ATTEND Family Medicine ==

== ENCOUNTER 2022-02-09 14:00 | Inpatient (IN) | payer OTHER ==
[~2022-02-09] VITALS: Ht 167.6 cm; Wt 81.6 kg
== END 2022-03-12 12:13 | disposition still patient (30) ==
LOC: PAVC 14:00
PROVIDERS: ADMIT Family Medicine; ATTEND Family Medicine
CPT/HCPCS: J2250

== ENCOUNTER 2022-03-12 12:47 | Inpatient (IN) | payer OTHER | END 2022-04-11 15:30 | disposition still patient (30) | LOC: PAVC 12:47 | PROVIDERS: ADMIT Family Medicine; ATTEND Family Medicine ==

== ENCOUNTER → 2022-03-12 | Outpatient (CLI) | payer OTHER | LOC: RAD 10:13 | PROVIDERS: ATTEND Family Medicine | DX: R14.0 Abdominal distension (gaseous) (principal) ==

== ENCOUNTER 2022-04-11 07:50 | Outpatient (CLI) | payer OTHER ==
[2022-04-11 08:14] LABS: PLATELET COUNT 181 K/uL (142-355)
[2022-04-11 08:29] LABS: POTASSIUM 4.5 mmol/L (3.6-5.2)
== END 2022-04-11 18:58 | disposition home or self-care (01) ==
LOC: LAB 07:50
PROVIDERS: ATTEND Family Medicine
DX: N40.0 Benign prostatic hyperplasia without lower urinary tract symptoms (principal); E11.9 Type 2 diabetes mellitus without complications; E03.8 Other specified hypothyroidism; I25.10 Atherosclerotic heart disease of native coronary artery without angina pectoris; I10 Essential (primary) hypertension
CPT/HCPCS: 80053; 83036; 84443; 85027

== ENCOUNTER 2022-04-11 16:01 | Inpatient (IN) | payer OTHER | END 2022-05-12 10:50 | disposition still patient (30) | LOC: PAVC 16:01 | PROVIDERS: ADMIT Family Medicine; ATTEND Family Medicine ==

== ENCOUNTER 2022-04-26 22:07 | Outpatient (CLI) | payer OTHER | END 2022-04-26 22:16 | disposition home or self-care (01) | LOC: LAB 22:07 | PROVIDERS: ATTEND Family Medicine | DX: R19.7 Diarrhea, unspecified (principal) | CPT/HCPCS: 87015; 87045; 87324; 87328; 87329; 87449; 87899 ==

== ENCOUNTER 2022-05-12 14:14 | Inpatient (IN) | payer OTHER | END 2022-06-12 09:27 | disposition still patient (30) | LOC: PAVC 14:14 | PROVIDERS: ADMIT Family Medicine; ATTEND Family Medicine ==

== ENCOUNTER 2022-05-24 23:40 | Outpatient (CLI) | payer OTHER | END 2022-05-24 23:45 | disposition home or self-care (01) | LOC: LAB 23:40 | PROVIDERS: ATTEND Family Medicine | DX: Z11.59 Encounter for screening for other viral diseases (principal) | CPT/HCPCS: 87502 ==

== ENCOUNTER 2022-06-12 12:18 | Inpatient (IN) | payer OTHER ==
[2022-07-07] MEDS ORDERED: CALCIUM 600 WIT1 TAB PO ×2 (11:58)
[2022-07-07] MEDS ORDERED: CIPR500T PO ×2 (12:00)
[2022-07-07] MEDS ORDERED: CVS STOOL SOFT100 MG PO ×2 (12:02)
[2022-07-07] MEDS ORDERED: ESCI10TA PO ×2 (12:03)
[2022-07-07] MEDS ORDERED: DOXA2TAB PO ×2 (12:03)
[2022-07-07] MEDS ORDERED: METRONIDAZOL500 MG PO ×2 (12:04)
[2022-07-07] MEDS ORDERED: FLUTICASON50 MCG/ACT NAS ×2 (12:07)
[2022-07-07] MEDS ORDERED: LYRICA150 MG PO ×2 (12:13)
[2022-07-07] MEDS ORDERED: MAGNESIUM-OXID400 MG PO ×2 (12:14)
[2022-07-07] MEDS ORDERED: MULTIVITAMI1 PO ×2 (12:16)
[2022-07-07] MEDS ORDERED: NITR0.4S2 SL ×2 (12:18)
[2022-07-07] MEDS ORDERED: POTASSIUM CHLO20 ME1 PO ×2 (12:20)
[2022-07-07] MEDS ORDERED: LANSOPRAZOLE DR30 MG PO ×2 (12:21)
[2022-07-07] MEDS ORDERED: CVS SENNA8.6 MG PO ×2 (12:23)
[2022-07-07] MEDS ORDERED: TRAMADOL HYDROC50 MG PO ×2 (12:24)
[2022-07-07] MEDS ORDERED: TRULICITY0.75 MG/0. SC ×2 (12:26)
[2022-07-07] MEDS ORDERED: ALLO100T22 PO ×2 (12:30)
== END 2022-07-10 15:19 | disposition still patient (30) ==
LOC: PAVC 12:18
PROVIDERS: ADMIT Family Medicine; ATTEND Family Medicine

== ENCOUNTER 2022-07-02 14:24 | Outpatient (CLI) | payer OTHER | END 2022-07-02 22:07 | disposition home or self-care (01) | LOC: RAD 14:24 | PROVIDERS: ATTEND Family Medicine | DX: R19.7 Diarrhea, unspecified (principal) ==

== ENCOUNTER 2022-07-05 20:36 | Outpatient (CLI) | payer OTHER ==
[2022-07-07] MEDS ORDERED: CALCIUM 600 WIT1 TAB PO (11:58)
[2022-07-07] MEDS ORDERED: CIPR500T PO (12:00)
[2022-07-07] MEDS ORDERED: CVS STOOL SOFT100 MG PO (12:02)
[2022-07-07] MEDS ORDERED: DOXA2TAB PO (12:03)
[2022-07-07] MEDS ORDERED: ESCI10TA PO (12:03)
[2022-07-07] MEDS ORDERED: METRONIDAZOL500 MG PO (12:04)
[2022-07-07] MEDS ORDERED: FLUTICASON50 MCG/ACT NAS (12:07)
[2022-07-07] MEDS ORDERED: LYRICA150 MG PO (12:13)
[2022-07-07] MEDS ORDERED: MAGNESIUM-OXID400 MG PO (12:14)
[2022-07-07] MEDS ORDERED: MULTIVITAMI1 PO (12:16)
[2022-07-07] MEDS ORDERED: NITR0.4S2 SL (12:18)
[2022-07-07] MEDS ORDERED: POTASSIUM CHLO20 ME1 PO (12:20)
[2022-07-07] MEDS ORDERED: LANSOPRAZOLE DR30 MG PO (12:21)
[2022-07-07] MEDS ORDERED: CVS SENNA8.6 MG PO (12:23)
[2022-07-07] MEDS ORDERED: TRAMADOL HYDROC50 MG PO (12:24)
[2022-07-07] MEDS ORDERED: TRULICITY0.75 MG/0. SC (12:26)
[2022-07-07] MEDS ORDERED: ALLO100T22 PO (12:30)
== END 2022-07-05 21:07 | disposition home or self-care (01) ==
LOC: RAD 20:36
PROVIDERS: ATTEND Family Medicine
DX: K56.41 Fecal impaction (principal)

== ENCOUNTER 2022-07-05 22:25 | Emergency (ER) | payer OTHER ==
[~2022-07-05] VITALS: Ht 162.6 cm; Wt 79.8 kg
[2022-07-05 22:49] LABS: PLATELET COUNT 175 K/uL (142-355)
[2022-07-05 23:01] LABS: POTASSIUM 3.8 mmol/L (3.6-5.2)
[2022-07-05 23:30] VITALS: BP 142/66; TEMP 98.7
[2022-07-07] MEDS ORDERED: CALCIUM 600 WIT1 TAB PO (11:58)
[2022-07-07] MEDS ORDERED: CIPR500T PO (12:00)
[2022-07-07] MEDS ORDERED: CVS STOOL SOFT100 MG PO (12:02)
[2022-07-07] MEDS ORDERED: DOXA2TAB PO (12:03)
[2022-07-07] MEDS ORDERED: ESCI10TA PO (12:03)
[2022-07-07] MEDS ORDERED: METRONIDAZOL500 MG PO (12:04)
[2022-07-07] MEDS ORDERED: FLUTICASON50 MCG/ACT NAS (12:07)
[2022-07-07] MEDS ORDERED: LYRICA150 MG PO (12:13)
[2022-07-07] MEDS ORDERED: MAGNESIUM-OXID400 MG PO (12:14)
[2022-07-07] MEDS ORDERED: MULTIVITAMI1 PO (12:16)
[2022-07-07] MEDS ORDERED: NITR0.4S2 SL (12:18)
[2022-07-07] MEDS ORDERED: POTASSIUM CHLO20 ME1 PO (12:20)
[2022-07-07] MEDS ORDERED: LANSOPRAZOLE DR30 MG PO (12:21)
[2022-07-07] MEDS ORDERED: CVS SENNA8.6 MG PO (12:23)
[2022-07-07] MEDS ORDERED: TRAMADOL HYDROC50 MG PO (12:24)
[2022-07-07] MEDS ORDERED: TRULICITY0.75 MG/0. SC (12:26)
[2022-07-07] MEDS ORDERED: ALLO100T22 PO (12:30)
== END 2022-07-06 01:20 ==
LOC: ED 22:25
PROVIDERS: Emergency Medicine
DX: K52.89 Other specified noninfective gastroenteritis and colitis (principal); N39.0 Urinary tract infection, site not specified; E46 Unspecified protein-calorie malnutrition
CPT/HCPCS: 36415; 80053; 81000; 82272; 85027; 87077; 87086; 87088; 87186; 96365; 99284; J3490; Q9963

== ENCOUNTER 2022-07-07 10:10 | Inpatient (IN) | payer OTHER ==
[~2022-07-07] VITALS: Ht 167.6 cm; Wt 87.2 kg
[2022-07-07 11:28] LABS: PLATELET COUNT 158 K/uL (142-355)
[2022-07-07 11:33] LABS: POTASSIUM 4.1 mmol/L (3.6-5.2)
[2022-07-07] MEDS ORDERED: CALCIUM 600 WIT1 TAB PO ×2 (11:58)
[2022-07-07] MEDS ORDERED: CIPR500T PO ×2 (12:00)
[2022-07-07] MEDS ORDERED: CVS STOOL SOFT100 MG PO ×2 (12:02)
[2022-07-07] MEDS ORDERED: ESCI10TA PO ×2 (12:03)
[2022-07-07] MEDS ORDERED: DOXA2TAB PO ×2 (12:03)
[2022-07-07] MEDS ORDERED: METRONIDAZOL500 MG PO ×2 (12:04)
[2022-07-07] MEDS ORDERED: FLUTICASON50 MCG/ACT NAS ×2 (12:07)
[2022-07-07] MEDS ORDERED: LYRICA150 MG PO ×2 (12:13)
[2022-07-07] MEDS ORDERED: MAGNESIUM-OXID400 MG PO ×2 (12:14)
[2022-07-07] MEDS ORDERED: MULTIVITAMI1 PO ×2 (12:16)
[2022-07-07] MEDS ORDERED: NITR0.4S2 SL ×2 (12:18)
[2022-07-07] MEDS ORDERED: POTASSIUM CHLO20 ME1 PO ×2 (12:20)
[2022-07-07] MEDS ORDERED: LANSOPRAZOLE DR30 MG PO ×2 (12:21)
[2022-07-07] MEDS ORDERED: CVS SENNA8.6 MG PO ×2 (12:23)
[2022-07-07] MEDS ORDERED: TRAMADOL HYDROC50 MG PO ×2 (12:24)
[2022-07-07] MEDS ORDERED: TRULICITY0.75 MG/0. SC ×2 (12:26)
[2022-07-07] MEDS ORDERED: ALLO100T22 PO ×2 (12:30)
[2022-07-07 12:34] VITALS: BP 121/45; TEMP 97.5; Ht 167.6 cm; Wt 87.2 kg
[2022-07-07 16:00] VITALS: BP 129/55; TEMP 97.5
[2022-07-07 20:00] VITALS: BP 118/56; TEMP 98.9
[2022-07-08] VITALS (7 sets, daily range): BP systolic 114–168; BP diastolic 51–69; TEMP 97.3–98.8
[2022-07-09 03:30] VITALS: BP 168/67; TEMP 97.8
[2022-07-09 05:48] LABS: PLATELET COUNT 149 K/uL (142-355)
[2022-07-09 06:10] LABS: POTASSIUM 2.7 mmol/L (3.6-5.2)
[2022-07-09 08:00] VITALS: BP 139/51; TEMP 98.3
[2022-07-09 12:00] VITALS: BP 130/67; TEMP 98.1
[2022-07-09 16:00] VITALS: BP 140/61; TEMP 98.2
[2022-07-09 19:34] VITALS: BP 174/57; TEMP 98.2
[2022-07-09 23:31] VITALS: BP 180/63; TEMP 98.3
[2022-07-10 03:30] VITALS: BP 158/45; TEMP 98.3
[2022-07-10 04:44] LABS: PLATELET COUNT 149 K/uL (142-355)
[2022-07-10 08:00] VITALS: BP 136/63; TEMP 98.1
[2022-07-10 11:25] VITALS: BP 149/60; TEMP 97.7
[2022-07-10 16:00] VITALS: BP 158/69; TEMP 98.2
[2022-07-10 20:08] VITALS: BP 154/61; TEMP 98.6
[2022-07-11] VITALS: BP 132/59; TEMP 98.6
[2022-07-11 04:00] VITALS: BP 150/64; TEMP 98.5
[2022-07-11 05:47] LABS: PLATELET COUNT 155 K/uL (142-355)
[2022-07-11 06:08] LABS: POTASSIUM 3.7 mmol/L (3.6-5.2)
[2022-07-11 07:57] VITALS: BP 137/72; TEMP 98.2
[2022-07-11 12:00] VITALS: BP 149/61; TEMP 97.4
[2022-07-11 16:00] VITALS: BP 157/77; TEMP 98
[2022-07-11 20:06] VITALS: BP 130/65; TEMP 97.9
[2022-07-12 00:13] VITALS: BP 136/61; TEMP 98.4
[2022-07-12 04:00] VITALS: BP 134/54; TEMP 98.2
[2022-07-12 08:00] VITALS: BP 156/62; TEMP 97.9
[2022-07-12 11:37] LABS: PLATELET COUNT 159 K/uL (142-355)
[2022-07-12 11:46] LABS: POTASSIUM 4.2 mmol/L (3.6-5.2)
[2022-07-12 12:00] VITALS: BP 151/58; TEMP 97.9
[2022-07-12] MEDS ORDERED: LACTTAB PO ×2 (13:02)
[2022-07-12] MEDS ORDERED: SIME80CH32 PO ×2 (13:02)
== END 2022-07-12 22:40 | disposition home or self-care (01) | DRG 690 ==
LOC: MED/SURG 10:10
PROVIDERS: ADMIT Internal Medicine; ATTEND Internal Medicine
DX: N39.0 Urinary tract infection, site not specified (principal); K56.7 Ileus, unspecified; B96.20 Unspecified Escherichia coli [E. coli] as the cause of diseases classified elsewhere; Z86.73 Personal history of transient ischemic attack (TIA), and cerebral infarction without residual deficits; K52.89 Other specified noninfective gastroenteritis and colitis; I25.2 Old myocardial infarction; L89.312 Pressure ulcer of right buttock, stage 2; K76.0 Fatty (change of) liver, not elsewhere classified; E11.22 Type 2 diabetes mellitus with diabetic chronic kidney disease; E11.65 Type 2 diabetes mellitus with hyperglycemia; I12.9 Hypertensive chronic kidney disease with stage 1 through stage 4 chronic kidney disease, or unspecified chronic kidney disease; N18.32 Chronic kidney disease, stage 3b
CPT/HCPCS: 36415; 80053; 81000; 82550; 83605; 83735; 85027; 86140; 87015; 87045; 87077; 87086; 87088; 87186; 87635; 87899; J0132; J0696; J2185; J3490; U0003

== ENCOUNTER 2022-07-10 16:02 | Inpatient (IN) | payer OTHER ==
[~2022-07-10 16:02] MED LIST changes: +ALLO100T22 PO; +CALCIUM 600 WIT1 TAB PO; +CIPR500T PO; +CVS SENNA8.6 MG PO; +CVS STOOL SOFT100 MG PO; +DOXA2TAB PO; +ESCI10TA PO; +FLUTICASON50 MCG/ACT NAS; +LANSOPRAZOLE DR30 MG PO; +LYRICA150 MG PO; +MAGNESIUM-OXID400 MG PO; +METRONIDAZOL500 MG PO; +MULTIVITAMI1 PO; +NITR0.4S2 SL; +POTASSIUM CHLO20 ME1 PO; +TRAMADOL HYDROC50 MG PO; +TRULICITY0.75 MG/0. SC
[2022-07-12] MEDS ORDERED: SIME80CH32 PO (13:02)
[2022-07-12] MEDS ORDERED: LACTTAB PO (13:02)
== END 2022-08-10 12:51 | disposition still patient (30) ==
LOC: PAVC 16:02
PROVIDERS: ADMIT Family Medicine; ATTEND Family Medicine
CPT/HCPCS: 83036

== ENCOUNTER 2022-08-10 13:13 | Inpatient (IN) | payer OTHER ==
[~2022-08-10 13:13] MED LIST changes: +LACTTAB PO; +SIME80CH32 PO
== END 2022-09-09 16:42 | disposition still patient (30) ==
LOC: PAVC 13:13
PROVIDERS: ADMIT Family Medicine; ATTEND Family Medicine

== ENCOUNTER 2022-08-28 14:01 | Outpatient (CLI) | payer OTHER ==
[2022-08-28 14:49] LABS: PLATELET COUNT 170 K/uL (142-355)
[2022-08-28 14:57] LABS: POTASSIUM 4.6 mmol/L (3.6-5.2)
== END 2022-08-28 18:00 | disposition home or self-care (01) ==
LOC: LAB 14:01
PROVIDERS: ATTEND Family Medicine
DX: R19.11 Absent bowel sounds (principal)
CPT/HCPCS: 36415; 80053; 85027

== ENCOUNTER 2022-08-29 07:49 | Outpatient (CLI) | payer OTHER ==
[~2022-08-29] VITALS: Ht 177.8 cm; Wt 86.2 kg
[2022-08-29 13:52] VITALS: BP 150/65; TEMP 97.8
[2022-08-29 16:22] VITALS: BP 170/71; TEMP 97.7
== END 2022-08-29 19:00 | disposition home or self-care (01) ==
LOC: LAB 07:49 → INF 07:49
PROVIDERS: ATTEND Family Medicine
DX: R79.89 Other specified abnormal findings of blood chemistry (principal)
CPT/HCPCS: 80048

== ENCOUNTER 2022-08-31 06:04 | Outpatient (CLI) | payer OTHER ==
[2022-08-31 08:55] LABS: POTASSIUM 3.9 mmol/L (3.6-5.2)
== END 2022-08-31 18:52 | disposition home or self-care (01) ==
LOC: LAB 06:04
PROVIDERS: ATTEND Family Medicine
DX: K52.89 Other specified noninfective gastroenteritis and colitis (principal); R79.89 Other specified abnormal findings of blood chemistry
CPT/HCPCS: 80048

== ENCOUNTER 2022-08-31 10:28 | Outpatient (CLI) | payer OTHER | END 2022-08-31 18:53 | disposition home or self-care (01) | LOC: INF 10:28 | PROVIDERS: ATTEND Family Medicine | DX: R79.89 Other specified abnormal findings of blood chemistry (principal) | CPT/HCPCS: 96360 ==

== ENCOUNTER 2022-09-01 06:16 | Outpatient (CLI) | payer OTHER ==
[2022-09-01 08:01] LABS: POTASSIUM 3.8 mmol/L (3.6-5.2)
== END 2022-09-01 18:51 | disposition home or self-care (01) ==
LOC: LAB 06:16
PROVIDERS: ATTEND Family Medicine
DX: K52.89 Other specified noninfective gastroenteritis and colitis (principal); R79.89 Other specified abnormal findings of blood chemistry
CPT/HCPCS: 80048

== ENCOUNTER 2022-09-06 05:50 | Outpatient (CLI) | payer OTHER ==
[2022-09-06 08:49] LABS: POTASSIUM 3.8 mmol/L (3.6-5.2)
== END 2022-09-06 19:10 | disposition home or self-care (01) ==
LOC: LAB 05:50
PROVIDERS: ATTEND Family Medicine
DX: K52.89 Other specified noninfective gastroenteritis and colitis (principal)
CPT/HCPCS: 80048

== ENCOUNTER 2022-09-09 17:28 | Inpatient (IN) | payer OTHER | END 2022-10-10 11:58 | disposition still patient (30) | LOC: PAVC 17:28 | PROVIDERS: ADMIT Family Medicine; ATTEND Family Medicine ==

== ENCOUNTER 2022-09-12 11:27 | Outpatient (CLI) | payer OTHER | END 2022-09-12 19:06 | disposition home or self-care (01) | LOC: LAB 11:27 | PROVIDERS: ATTEND Family Medicine | DX: R82.998 Other abnormal findings in urine (principal) | CPT/HCPCS: 81000; 87077; 87086; 87088; 87186 ==

== ENCOUNTER 2022-09-21 19:10 | Outpatient (CLI) | payer OTHER ==
[2022-09-21 20:03] LABS: PLATELET COUNT 294 K/uL (142-355)
[2022-09-21 20:16] LABS: POTASSIUM 3.8 mmol/L (3.6-5.2)
== END 2022-09-21 22:00 | disposition home or self-care (01) ==
LOC: LAB 19:10
PROVIDERS: ATTEND Family Medicine
DX: R41.82 Altered mental status, unspecified (principal)
CPT/HCPCS: 80053; 81000; 85027; 87077; 87086; 87088; 87186

== ENCOUNTER 2022-09-23 14:45 | Outpatient (CLI) | payer OTHER ==
[~2022-09-23] VITALS: Ht 167.6 cm; Wt 87.1 kg
[2022-09-23 14:57] VITALS: BP 150/71; TEMP 98.3
== END 2022-09-23 20:45 | disposition home or self-care (01) ==
LOC: INF 14:45
PROVIDERS: ATTEND Family Medicine
DX: N39.0 Urinary tract infection, site not specified (principal)
CPT/HCPCS: 96365; J1335

== ENCOUNTER 2022-09-24 14:53 | Outpatient (CLI) | payer OTHER ==
[~2022-09-24] VITALS: Ht 167.6 cm; Wt 87.1 kg
[2022-09-24 15:00] VITALS: BP 105/57; TEMP 97.3
== END 2022-09-24 20:52 | disposition home or self-care (01) ==
LOC: INF 14:53
PROVIDERS: ATTEND Family Medicine
DX: N39.0 Urinary tract infection, site not specified (principal)
CPT/HCPCS: 96365; J1335

== ENCOUNTER 2022-09-25 14:33 | Outpatient (CLI) | payer OTHER ==
[~2022-09-25] VITALS: Ht 152.4 cm; Wt 68.0 kg
[2022-09-25 14:40] VITALS: BP 126/67; TEMP 97.9
[2022-09-25 15:40] VITALS: BP 124/64; TEMP 97.8
== END 2022-09-25 20:45 | disposition home or self-care (01) ==
LOC: INF 14:33
PROVIDERS: ATTEND Family Medicine
DX: N39.0 Urinary tract infection, site not specified (principal)
CPT/HCPCS: 96365; J1335

== ENCOUNTER 2022-09-26 14:31 | Outpatient (CLI) | payer OTHER ==
[~2022-09-26] VITALS: Ht 154.9 cm; Wt 85.3 kg
[2022-09-26 15:10] VITALS: BP 143/57; TEMP 97.2
== END 2022-09-26 20:56 | disposition home or self-care (01) ==
LOC: INF 14:31
PROVIDERS: ATTEND Family Medicine
DX: N39.0 Urinary tract infection, site not specified (principal)
CPT/HCPCS: 96365; J1335

== ENCOUNTER 2022-09-27 14:56 | Outpatient (CLI) | payer OTHER ==
[~2022-09-27] VITALS: Ht 167.6 cm; Wt 81.6 kg
== END 2022-09-27 19:30 | disposition home or self-care (01) ==
LOC: INF 14:56
PROVIDERS: ATTEND Family Medicine
DX: N39.0 Urinary tract infection, site not specified (principal)
CPT/HCPCS: 96365; J1335

== ENCOUNTER 2022-10-10 08:05 | Outpatient (CLI) | payer OTHER ==
[2022-10-10 08:32] LABS: PLATELET COUNT 186 K/uL (142-355)
[2022-10-10 08:41] LABS: POTASSIUM 2.8 mmol/L (3.6-5.2)
== END 2022-10-10 19:09 | disposition home or self-care (01) ==
LOC: LAB 08:05
PROVIDERS: ATTEND Family Medicine
DX: N18.30 Chronic kidney disease, stage 3 unspecified (principal); N39.0 Urinary tract infection, site not specified; Z79.899 Other long term (current) drug therapy
CPT/HCPCS: 80053; 81000; 82043; 82306; 82330; 82570; 83735; 83970; 84100; 84156; 85027; 87086; 87088

== ENCOUNTER 2022-10-10 12:18 | Inpatient (IN) | payer OTHER | END 2022-11-09 17:41 | disposition still patient (30) | LOC: PAVC 12:18 | PROVIDERS: ADMIT Family Medicine; ATTEND Family Medicine ==

== ENCOUNTER 2022-10-13 22:35 | Emergency (ER) | payer OTHER ==
[~2022-10-13] VITALS: Ht 167.6 cm; Wt 79.4 kg
[2022-10-13 22:35] VITALS: TEMP 98
[2022-10-14 00:11] LABS: PLATELET COUNT 213 K/uL (142-355)
[2022-10-14 00:24] LABS: POTASSIUM 3.6 mmol/L (3.6-5.2)
[2022-10-14 02:20] VITALS: BP 92/53
== END 2022-10-14 02:20 ==
LOC: ED 22:35
PROVIDERS: Radiology Diagnostic Radiology
DX: N39.0 Urinary tract infection, site not specified (principal)
CPT/HCPCS: 36415; 80053; 81000; 83605; 85027; 87077; 87086; 87088; 87185; 87186; 96365; 99284; J1956

== ENCOUNTER 2022-10-14 10:49 | Outpatient (CLI) | payer OTHER | END 2022-10-14 19:23 | disposition home or self-care (01) | LOC: LAB 10:49 | PROVIDERS: ATTEND Family Medicine | DX: I25.10 Atherosclerotic heart disease of native coronary artery without angina pectoris (principal); K52.9 Noninfective gastroenteritis and colitis, unspecified; I10 Essential (primary) hypertension; E11.9 Type 2 diabetes mellitus without complications | CPT/HCPCS: 80061; 83036; 84443 ==

== ENCOUNTER 2022-11-28 20:31 | Emergency (ER) | payer OTHER ==
[~2022-11-28] VITALS: Ht 167.6 cm; Wt 81.0 kg
[2022-11-28 20:31] VITALS: TEMP 98
[2022-11-28 21:04] LABS: PLATELET COUNT 249 K/uL (142-355)
[2022-11-28 21:15] LABS: POTASSIUM 3.8 mmol/L (3.6-5.2)
[2022-11-29 01:25] VITALS: BP 142/72
== END 2022-11-29 01:25 ==
LOC: ED 20:31
PROVIDERS: Family Medicine
DX: N39.0 Urinary tract infection, site not specified (principal)
CPT/HCPCS: 36415; 80053; 81000; 85027; 87077; 87086; 87088; 87185; 93005; 96361; 96365; 96366; 96375; 99284; J1956; J2270; J3010

== ENCOUNTER 2023-01-14 07:49 | Outpatient (CLI) | payer OTHER | END 2023-01-14 22:00 | disposition home or self-care (01) | LOC: LAB 07:49 | PROVIDERS: ATTEND Family Medicine | DX: E11.9 Type 2 diabetes mellitus without complications (principal); N40.0 Benign prostatic hyperplasia without lower urinary tract symptoms | CPT/HCPCS: 36415; 83036; 84153 ==